=== PATIENT | female | born 1980 | race Caucasian/White ===

== ENCOUNTER 2020-07-26 16:35 | Emergency (ER) | payer OTHER ==
[2020-07-26 16:49] VITALS: BP 144/72; TEMP 98; BMI 29.8
[2020-07-26 16:54] VITALS: PULSE 85
== END 2020-07-26 17:12 | disposition home or self-care (01) ==
LOC: JER 16:35
DX: Z11.59 Encounter for screening for other viral diseases (principal)
CPT/HCPCS: 99283-25; C9803; U0003